=== PATIENT | female | born 1980 | race African-American/Black ===

== ENCOUNTER 2023-07-13 23:39 | Emergency (ER) | payer SELFPAY | END 2023-07-14 00:31 | disposition home or self-care (01) | LOC: ERS 23:39 | DX: L98.9 Disorder of the skin and subcutaneous tissue, unspecified (principal); F17.210 Nicotine dependence, cigarettes, uncomplicated; I10 Essential (primary) hypertension | CPT/HCPCS: 99283 ==

== ENCOUNTER 2023-07-26 03:48 | Emergency (ER) | payer SELFPAY ==
[2023-07-26] MEDS ORDERED: Ibuprofen 200 MG TAB ONE (04:02)
[2023-07-26 06:52] LABS: SARS-CoV-2 NAA Rapid Test Not Detected (NotDetected)
== END 2023-07-26 07:00 | disposition home or self-care (01) ==
LOC: ERS 03:48
DX: J10.1 Influenza due to other identified influenza virus with other respiratory manifestations (principal); I10 Essential (primary) hypertension; F17.210 Nicotine dependence, cigarettes, uncomplicated; Z20.822 Contact with and (suspected) exposure to COVID-19
CPT/HCPCS: 71045

== ENCOUNTER 2025-07-30 18:36 | Emergency (ER) | payer OTHER | END 2025-07-30 20:37 | LOC: ERS 18:36 | DX: Z53.21 Procedure and treatment not carried out due to patient leaving prior to being seen by health care provider (principal) ==